=== PATIENT | female | born 1960 | race African-American/Black ===

== ENCOUNTER 2023-11-06 04:03 | Emergency (ER) | payer OTHER ==
[~2023-11-06] VITALS: Ht 172.7 cm; Wt 98.0 kg
[2023-11-06 04:13] VITALS: O2SAT 96
[2023-11-06] MEDS ORDERED: MORPHINE SULFATE 4 MG/ML CPJ (NOT FOR IM USE) IV ONE (05:30)
[2023-11-06 06:16] LABS: BASOPHILS % 0.8 % (0.0-2.0); EOSINOPHILS % 5.3 % (0.0-5.0); HEMATOCRIT. 39.9 % (36.0-48.0); LYMPHOCYTES % 35.6 % (20.0-50.0); MEAN CORPUSCULAR HEMOGLOBIN 30.4 pg (28.0-32.0); MEAN CORPUSCULAR HGB CONC 32.7 g/dL (31.0-37.0); MEAN CORPUSCULAR VOLUME 92.9 fL (81.0-99.0); MEAN PLATELET VOLUME 8.2 fl (7.4-10.4); MONOCYTES % 10.5 % (2.0-8.0); NEUTROPHILS % 47.8 % (40.0-76.0); PLATELET 271 x1000/uL (130-400); WHITE BLOOD COUNT 5.4 x1000/uL (4.5-11.0)
[2023-11-06 06:20] LABS: PROTHROMBIN TIME 10.3 sec (9.6-11.0)
[2023-11-06] MEDS ORDERED: ASPIRIN 325MG TABLET PO ONE (06:45)
[2023-11-06 07:00] VITALS: TEMP 98
[2023-11-06 07:52] LABS: ALANINE AMINOTRANSFERASE 18 IU/L (10-49); ALBUMIN 4.4 g/dL (3.2-4.8); ASPARTATE AMINOTRANSFERASE 27 IU/L (<34); BILIRUBIN TOTAL 0.6 mg/dL (0.1-1.0); CALCIUM 9.5 mg/dL (8.7-10.4); CARBON DIOXIDE 21 mEq/L (21-32); CHLORIDE 106 mEq/L (98-107); CREATININE 0.6 mg/dL (0.6-1.0); GLUCOSE 87 mg/dL (70-105); POTASSIUM 4.7 mEq/L (3.5-5.1); SODIUM 139 mEq/L (136-145); TROPONIN I HIGH SENSITIVITY 15 ng/L (3.0-34); UREA NITROGEN BLOOD 9 mg/dL (9-23)
[2023-11-06 07:56] LABS: ETHANOL BLOOD < 10 mg/dL (<10)
[2023-11-06 08:58] VITALS: BP 158/84; PULSE 54; RESP 13
== END 2023-11-06 11:55 | disposition short-term general hospital (02) ==
LOC: ER 04:03 → CANBEDREQ 10:26 → ER 11:55
DX: R53.1 Weakness (principal); R51.9 Headache, unspecified; E78.00 Pure hypercholesterolemia, unspecified; I10 Essential (primary) hypertension
CPT/HCPCS: 80053; 80320; 85025; 85610; 84484; 36415; 71045; 70450; 93005; 96374; 99285; J2270; G0480